=== PATIENT | female | born 1985 | race Caucasian/White ===

== ENCOUNTER 2016-12-15 10:13 | Emergency (ER) | payer SELFPAY ==
[2016-12-15 10:22] VITALS: BMI 27.4
[2016-12-15 10:28] VITALS: TEMP 97.8
[2016-12-15] MEDS ORDERED: LORazepam 1 MG TABLET PO ONE (11:27)
[2016-12-15] MEDS ORDERED: LORazepam 0.5 MG TABLET ONE (11:31)
--- NOTE | 2016-12-15 11:33 | PDOC ---
History of Present Illness - General Chief Complaint: Chest Pain Stated Complaint: CHEST PAIN Time Seen by Provider: 12/15/16 11:04 History Source: Patient - History of Present Illness Presenting Symptoms: Chest Pain Timing/Duration: reports: constant Severity/Quality: reports: moderate Location: reports: substernal Chest Pain Radiation: reports: no radiation Past History - Past Medical History Allergies/Adverse Reactions: Allergies Allergy/AdvReac Type Severity Reaction Status Date / Time No Known Allergies Allergy Verified 12/15/16 10:20 Home Medications: Ambulatory Orders Alprazolam [Xanax] 0.5 mg PO BID #10 tablet 09/13/14 Buspirone HCl [Buspar -] 15 mg PO BID 09/28/14 Asthma: No Cancer: No Cardiac Disorders: No Diabetes: No HTN: No Suicide Attempt (Hx): No Seizures: No Thyroid Disease: No Other medical history: none - Immunization History Immunization Up to Date: Yes - Psycho/Social/Smoking Cessation Hx Anxiety: Yes (on meds. ran out of xanax saturday) Suicidal Ideation: No Smoking History: Never smoked Have you smoked in the past 12 months: No Information on smoking cessation initiated: Yes Hx Alcohol Use: No Drug/Substance Use Hx: No Substance Use Type: None Hx Substance Use Treatment: No Review of Systems - Review of Systems Constitutional: No: Chills, Fever Respiratory: No: Cough, Shortness of Breath Cardiac (ROS): Yes: Chest Pain. No: Lightheadedness, Palpitations, Syncope *Physical Exam - Vital Signs Last Vital Signs Temp Pulse Resp BP Pulse Ox 97.8 F 86 18 140/94 100 12/15/16 10:21 12/15/16 10:21 12/15/16 10:21 12/15/16 10:21 12/15/16 10:21 - Physical Exam Comments: 12/15/16 11:33 appears anxious General Appearance: Yes: Appropriately Dressed HEENT: positive: Normal Voice Neck: positive: Supple Respiratory/Chest: positive: Lungs Clear, Normal Breath Sounds. negative: Respiratory Distress Cardiovascular: positive: Regular Rate, S1, S2 Extremity: positive: Normal Inspection Integumentary: positive: Dry, Warm Neurologic: positive: Fully Oriented, Alert, Normal Mood/Affect Heart Score/ECG Review - ECG Intrepretation Comment:: 12/15/16 12:10 Twelve-lead EKG was performed and reviewed by me. There is normal sinus rhythm with a normal rate. The axis is normal. The intervals are normal. There are no ST or T wave abnormalities. Impression: Normal twelve-lead EKG ED Treatment Course - ADDITIONAL ORDERS Additional order review: Laboratory Results 12/15/16 11:19 Urine HCG, Qual Negative - RADIOLOGY Radiology Studies Ordered: Category Date Time Status CHEST PA & LAT [RAD] Stat Radiology 12/15/16 11:27 Completed - Medications Given in the ED: ED Medications Discontinued Medications Generic Name Dose Route Start Last Admin Trade Name Monika PRN Reason Stop Dose Admin Lorazepam 1 mg 12/15/16 11:27 12/15/16 11:31 Ativan - PO 12/15/16 11:28 1 mg ONCE ONE Administration Medical Decision Making - Medical Decision Making 12/15/16 11:27 31-year-old female, reports history of anxiety, not on any medication and has never seen a therapist or psychiatrist, here with chest tightness and shortness of breath that started this morning. Patient states symptoms similar to her anxiety, but that chest pain more severe now. No diaphoresis, nausea, vomiting , palpitations, leg pain or swelling. No obvious risk factors for DVT/PE. Patient states she smoked hookah last night which she has done in the past. Denies illicit drug use See exam CP Possible related to anxiety based on HPI Pt appears anxious but stable w/ unremarkable exam -ativan -ekg/cxr -anticipate discharge 12/15/16 12:10 Ekg and cxr neg. Pt better w/ ativan. Will dc w/ referral to pmd 12/15/16 12:12 *DC/Admit/Observation/Transfer Diagnosis at time of Disposition: Chest pain Qualifiers: Chest pain type: unspecified Qualified Code(s): R07.9 - Chest pain, unspecified - Discharge Dispostion Disposition: HOME Condition at time of disposition: Improved - Patient Instructions Printed Discharge Instructions: DI for Anxiety -- Adult Additional Instructions: Please follow-up at [facility] at [phone]
[2016-12-15 12:16] VITALS: BP 130/78; PULSE 82
--- NOTE | 2016-12-16 13:52 | EKG ---
Test Reason : Blood Pressure : / mmHG Vent. Rate : 077 BPM Atrial Rate : 077 BPM P-R Int : 126 ms QRS Dur : 084 ms QT Int : 398 ms P-R-T Axes : 061 045 032 degrees QTc Int : 450 ms NORMAL SINUS RHYTHM PROBABLE EARLY REPOLARIZATION PATTERN WHEN COMPARED WITH ECG OF 13-SEP-2014 16:03, ST NO LONGER DEPRESSED IN INFERIOR LEADS REPEAT EKG IF CLINICALLY INDICATED Confirmed by TILA RUBY MD ([id number]) on 12/16/2016 1:52:42 PM Referred By: Confirmed By:TILA RUBY MD
== END 2016-12-15 12:16 | disposition home or self-care (01) ==
LOC: JER 10:13
DX: R07.9 Chest pain, unspecified (principal); F41.9 Anxiety disorder, unspecified
CPT/HCPCS: 71020-TC; 84703; 93005; 93010; 99283-25

== ENCOUNTER 2021-11-11 00:59 | Emergency (ER) | payer SELFPAY ==
[2021-11-11] MEDS ORDERED: SODIUM CHLORIDE 0.9% 500 ML INFUS.BAG IV ONE (01:10)
[2021-11-11 01:12] VITALS: BP 118/82; PULSE 74; RESP 20; TEMP 98.7; BMI 24.7
[2021-11-11 01:46] LABS: BASO % 0.5 % (0-2.0); EOS % 0.1 % (0-4.5); HEMATOCRIT 41.5 % (32.4-45.2); HEMOGLOBIN 14.4 GM/dL (10.7-15.3); LYMPH % 11.7 % (8-40); MCH 31.6 pg (25.7-33.7); MCHC 34.6 g/dl (32.0-36.0); MEAN CELL VOLUME 91.5 fl (80-96); MEAN PLT VOLUME 9.2 fl (7.5-11.1); MONO % 4.6 % (3.8-10.2); NEUT % 83.1 % (42.8-82.8); PLATELET COUNT 208 10^3/uL (134-434); RBC 4.54 M/mm3 (3.60-5.2); RDW 13.4 % (11.6-15.6); WHITE BLOOD COUNT 6.9 K/mm3 (4.0-10.0)
[2021-11-11 02:08] LABS: ALBUMIN 3.9 g/dl (3.4-5.0); BLOOD UREA NITROGEN 6.3 mg/dL (7-18)
[2021-11-11 02:11] LABS: CREATININE 0.7 mg/dL (0.55-1.3)
[2021-11-11 02:12] LABS: BILIRUBIN,TOTAL 0.4 mg/dL (0.2-1); TOT PROT 7.7 g/dl (6.4-8.2)
== END 2021-11-11 04:44 | disposition home or self-care (01) ==
LOC: JER 00:59
DX: R55 Syncope and collapse (principal); F10.920 Alcohol use, unspecified with intoxication, uncomplicated; W19.XXXA Unspecified fall, initial encounter
CPT/HCPCS: 36415; 70450-TC; 72125-TC; 80053; 84703; 85025; 93005; 93010; 99285-25